=== PATIENT | female | born 1970 | race Hispanic/Latino ===

== ENCOUNTER 2018-03-29 14:38 | Outpatient (CLI) | payer OTHER ==
--- NOTE | 2018-03-29 15:24 | ULT ---
VENOUS DUPLEX SONOGRAM LEFT LOWER EXTREMITY: HISTORY: Left leg pain and edema. FINDINGS: The left common femoral vein and greater saphenous junction were evaluated along with femoral, deep f emoral, popliteal, and posterior tibial veins. There is good color and spectral Doppler flow, compre ssion, and augmentation. IMPRESSION: No sonographic evidence of deep vein thrombosis within the left lower extremity. POS: [facility]
== END 2018-03-29 14:39 | disposition home or self-care (01) ==
LOC: BICULT 14:38
PROVIDERS: ATTEND Internal Medicine Rheumatology
DX: R60.0 Localized edema (principal)